=== PATIENT | male | born 1955 | race African-American/Black ===

== ENCOUNTER → 2019-04-08 | Outpatient (CLI) | payer MEDICARE, MEDICAID ==
[~2019-04-08] MED LIST: REGADENOSON 0.4 MG/5 ML IV SCH
== END | disposition home or self-care (01) ==
LOC: NM 07:37
PROVIDERS: ATTEND Internal Medicine Cardiovascular Disease
DX: I73.9 Peripheral vascular disease, unspecified (principal); M19.90 Unspecified osteoarthritis, unspecified site; E78.00 Pure hypercholesterolemia, unspecified
CPT/HCPCS: 78452; 93017; A9500

== ENCOUNTER 2022-04-27 18:03 | Emergency (ER) | payer MEDICARE, MEDICAID ==
[~2022-04-27] VITALS: Ht 175.3 cm; Wt 108.0 kg
[2022-04-27 18:08] VITALS: BP 140/65
[2022-04-27] MEDS ORDERED: METHOCARBAMOL 750MG TABLET PO SCH (18:45)
[2022-04-27] MEDS ORDERED: ACETAMINOPHEN 325MG TABLET PO ONE (18:45)
== END 2022-04-27 21:15 | disposition home or self-care (01) ==
LOC: ER 18:03
DX: S13.4XXA Sprain of ligaments of cervical spine, initial encounter (principal); V49.49XA Driver injured in collision with other motor vehicles in traffic accident, initial encounter; Y93.89 Activity, other specified; Y92.89 Other specified places as the place of occurrence of the external cause; Y99.8 Other external cause status; E78.00 Pure hypercholesterolemia, unspecified; I10 Essential (primary) hypertension
CPT/HCPCS: 71045; 99284